=== PATIENT | male | born 1955 | race Caucasian/White ===

== ENCOUNTER → 2017-04-04 | Outpatient (CLI) | payer OTHER ==
--- NOTE | 2017-04-04 11:13 | DIAGNOSTIC IMAGING REPORT ---
TESTICULAR ULTRASOUND HISTORY: Left testicular lump. SCROTAL SWELLING COMPARISON: Testicular ultrasound 08/24/2013. FINDINGS: Right testis: 4.6 x 1.9 x 3.0 cm. There are no intratesticular masses. Normal color flow. No hydrocele. The epididymis is unremarkable. Left testis: 3.6 x 1.9 x 3.0 cm. There are no intratesticular masses. Normal color flow. No hydrocele. Mild dilatation of the rete testis. Increase in size in the 5.5 x 2.5 x 4.4 cm left epididymal head cyst/spermatocele. There are few additional smaller cysts/spermatoceles. IMPRESSION: 1. Normal right testes. 2. Increase in size in the left spermatoceles with the largest measuring 5.5 x 4.4 x 2.5 cm. Electronically signed by: Mason Villegas M.D. 04/04/2017 11:12 AM Dictated Date/Time: 04/04/2017 11:07 AM
== END | disposition home or self-care (01) ==
LOC: C.ULTRBC 10:16
PROVIDERS: ATTEND Family Medicine
DX: N50.89 Other specified disorders of the male genital organs (principal)